=== PATIENT | male | born 2000 | race African-American/Black ===

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

== ENCOUNTER 2020-06-23 19:10 | Emergency (ER) | payer MEDICAID ==
[~2020-06-23] VITALS: Ht 180.3 cm; Wt 86.5 kg
[2020-06-23] MEDS ORDERED: AMOXICILLIN/POTASSIUM CLAVULANATE 875/125MG TAB PO ONE (19:45)
[2020-06-23] MEDS ORDERED: IBUPROFEN 600MG TABLET PO ONE (19:45)
[2020-06-23 20:18] VITALS: BP 115/63
== END 2020-06-23 20:23 | disposition home or self-care (01) ==
LOC: ER 19:10
DX: S21.101D Unspecified open wound of right front wall of thorax without penetration into thoracic cavity, subsequent encounter (principal); J45.909 Unspecified asthma, uncomplicated; Z98.890 Other specified postprocedural states; T81.49XA Infection following a procedure, other surgical site, initial encounter; W34.00XD Accidental discharge from unspecified firearms or gun, subsequent encounter
CPT/HCPCS: 99283

== ENCOUNTER 2021-04-01 00:21 | Emergency (ER) | payer MEDICAID, OTHER ==
[~2021-04-01] VITALS: Ht 175.3 cm; Wt 78.0 kg
[2021-04-01] MEDS ORDERED: ACET650T37 MT (01:40)
[2021-04-01] MEDS ORDERED: IBUP-2029 MT (01:40)
[2021-04-01] MEDS ORDERED: AMOX-424 MT (01:40)
[2021-04-01 02:18] VITALS: BP 135/79
== END 2021-04-01 02:26 ==
LOC: ER 00:47
DX: S50.312A Abrasion of left elbow, initial encounter (principal); S50.311A Abrasion of right elbow, initial encounter; J45.909 Unspecified asthma, uncomplicated; I10 Essential (primary) hypertension; W18.39XA Other fall on same level, initial encounter; Y93.89 Activity, other specified; Y92.89 Other specified places as the place of occurrence of the external cause; Y99.8 Other external cause status; Z79.899 Other long term (current) drug therapy
CPT/HCPCS: 29105; 73030; 73070; 73080; 99284; A4565